=== PATIENT | female | born 1990 | race American Indian/Alaskan Native ===

== ENCOUNTER 2018-06-22 06:57 | Emergency (ER) | payer OTHER ==
[2018-06-22 07:04] VITALS: BP 130/64
[2018-06-22 08:34] LABS: Bilirubin,Urine NEG (Negative); Blood,Urine MOD (Negative); Color,Urine Yellow (Yellow); Protein,Urine <15 mg/dL mg/dL (Negative); Urobilinogen,Urine < 2.0 mg/dL (<2.0); WBC,Urine < 1.0 /HPF (0.0-6.0)
[2018-06-22 08:39] LABS: HCG Qualitative,Urine Negative (Negative)
--- NOTE | 2018-06-22 09:16 | Emergency Department Report ---
ED General Adult HPI - General Chief complaint: Back Pain/Injury Stated complaint: BACK/KNEE/VAGINAL PAIN Time Seen by Provider: 06/22/18 09:00 Source: patient Mode of arrival: Ambulatory Limitations: No Limitations - History of Present Illness Initial comments: Patient is a 27-year-old [place]ian female who is here secondary to some body aches. Patient states over the last several days she developed some pain in the left scapular region in the left knee. Patient states that she is on her feet rectally 10 hours a day at work she also does a lot of heavy lifting with her job at the [employer]. Patient states has been no direct trauma but feels as though she may have injured herself at work. Patient also with a last several days developed some pelvic discomfort. Patient states there is been no dysuria or vaginal discharge. Patient is currently on her menses. Patient denies any fevers chills nausea vomiting at this time. Severity scale (0 -10): 5 Quality: aching Consistency: intermittent Worsens with: movement - Related Data Previous Rx's Medication Instructions Recorded Last Taken Type Ibuprofen [Ibu] 800 mg PO Q8H PRN #20 tablet 06/22/18 Unknown Rx methOCARBAMOL [Robaxin TAB] 500 mg PO Q6H PRN #14 tablet 06/22/18 Unknown Rx traMADol [Ultram] 50 mg PO Q6HR PRN #12 tablet 06/22/18 Unknown Rx Allergies Allergy/AdvReac Type Severity Reaction Status Date / Time No Known Allergies Allergy Unverified 06/22/18 06:59 ED Review of Systems ROS: Stated complaint: BACK/KNEE/VAGINAL PAIN Other details as noted in HPI Comment: All other systems reviewed and negative ED Past Medical Hx - Past Medical History Previous Medical History?: Yes Hx Asthma: Yes - Surgical History Past Surgical History?: No - Social History Smoking Status: Current Every Day Smoker - Medications Home Medications: Home Medications Medication Instructions Recorded Confirmed Last Taken Type Ibuprofen [Ibu] 800 mg PO Q8H PRN #20 tablet 06/22/18 Unknown Rx methOCARBAMOL [Robaxin TAB] 500 mg PO Q6H PRN #14 tablet 06/22/18 Unknown Rx traMADol [Ultram] 50 mg PO Q6HR PRN #12 tablet 06/22/18 Unknown Rx ED Physical Exam - General Limitations: No Limitations General appearance: alert, in no apparent distress, other (morbidly obese) - Head Head exam: Present: atraumatic, normocephalic - Eye Eye exam: Present: normal appearance, PERRL, EOMI - ENT ENT exam: Present: mucous membranes moist - Neck Neck exam: Present: normal inspection - Respiratory Respiratory exam: Present: normal lung sounds bilaterally. Absent: respiratory distress, wheezes, rales, rhonchi - Cardiovascular Cardiovascular Exam: Present: regular rate, normal rhythm, normal heart sounds. Absent: systolic murmur, diastolic murmur, rubs, gallop - GI/Abdominal GI/Abdominal exam: Present: soft, normal bowel sounds. Absent: distended, tenderness, guarding, rebound, rigid - Extremities Exam Extremities exam: Present: normal inspection - Back Exam Back exam: Present: normal inspection, tenderness (at left scapula and trapezius) - Neurological Exam Neurological exam: Present: alert, oriented X3 - Psychiatric Psychiatric exam: Present: normal affect, normal mood - Skin Skin exam: Present: warm, dry, intact, normal color. Absent: rash ED Course Vital Signs 06/22/18 06:59 Temperature 98.7 F Pulse Rate 85 Respiratory 18 Rate Blood Pressure 130/64 O2 Sat by Pulse 98 Oximetry ED Medical Decision Making - Medical Decision Making Patient is a 27-year-old female who is presenting with body aches. His has pain in the left knee as well as her back. Patient likely with some muscular skeletal pain secondary to heavy lifting. Patient's left knee pain likely from overuse with standing all day and being morbidly obese. Patient was given meds for symptomatic relief. Patient's also with some mild dysmenorrhea. Patient discharged home. Critical care attestation.: If time is entered above; I have spent that time in minutes in the direct care of this critically ill patient, excluding procedure time. ED Disposition Clinical Impression: Dysmenorrhea, Musculoskeletal back pain Disposition: - TO HOME OR SELFCARE Is pt being admited?: No Does the pt Need Aspirin: No Condition: Stable Instructions: Musculoskeletal Pain (ED) Referrals: NEENA BRANCH MD [Primary Care Provider] - 3-5 Days Forms: Work/School Release Form(ED) Time of Disposition: 09:19
== END 2018-06-22 09:37 | disposition home or self-care (01) ==
LOC: ED 06:57
DX: M25.562 Pain in left knee (principal); M54.9 Dorsalgia, unspecified; N94.6 Dysmenorrhea, unspecified; F17.200 Nicotine dependence, unspecified, uncomplicated; J45.909 Unspecified asthma, uncomplicated
CPT/HCPCS: 81001; 81025

== ENCOUNTER 2018-06-29 06:50 | Emergency (ER) | payer SELFPAY ==
[2018-06-29 06:59] VITALS: BP 153/85
[2018-06-29 07:39] LABS: Bilirubin,Urine NEG (Negative); Blood,Urine MOD (Negative); Color,Urine Yellow (Yellow); Mucus,Urine 2+ /HPF; Urobilinogen,Urine < 2.0 mg/dL (<2.0)
[2018-06-29] MEDS ORDERED: TORADOL IM ONE (07:42)
[2018-06-29 07:44] LABS: HCG Qualitative,Urine Negative (Negative)
--- NOTE | 2018-06-29 07:46 | Emergency Department Report ---
ED Female HPI - General Chief complaint: Urogenital-Female Stated complaint: BACK AND KNEE PAIN, VAGINAL DISCAHRGE Time Seen by Provider: 06/29/18 07:17 Source: patient Mode of arrival: Ambulatory Limitations: No Limitations - History of Present Illness Initial comments: This is a 27-year-old female who presents to ED complaining of dysuria and burni ng with urination times one week. Patient's is a past couple of days symptoms of condom. Worse. Patient states that she only gets burning in when she urinates. She says she has similar symptoms last week when she was here for back and knee pain. Patient states that she has a history of syphilis but no other medical conditions. Patient denies abdominal pain, nausea, vomiting, abnormal bleeding, vaginal discharge, rash or lesions in the vaginal area. MD Complaint: dysuria - Related Data Previous Rx's Medication Instructions Recorded Last Taken Type Ibuprofen [Ibu] 800 mg PO Q8H PRN #20 tablet 06/22/18 Unknown Rx methOCARBAMOL [Robaxin TAB] 500 mg PO Q6H PRN #14 tablet 06/22/18 Unknown Rx traMADol [Ultram] 50 mg PO Q6HR PRN #12 tablet 06/22/18 Unknown Rx Fluconazole [Diflucan TAB] 150 mg PO ONCE #1 tablet 06/29/18 Unknown Rx metroNIDAZOLE [Flagyl] 500 mg PO Q12HR #14 tab 06/29/18 Unknown Rx Allergies Allergy/AdvReac Type Severity Reaction Status Date / Time No Known Allergies Allergy Unverified 06/22/18 06:59 ED Review of Systems ROS: Stated complaint: BACK AND KNEE PAIN, VAGINAL DISCAHRGE Other details as noted in HPI Comment: All other systems reviewed and negative ED Past Medical Hx - Past Medical History Previous Medical History?: Yes Hx Asthma: Yes - Surgical History Past Surgical History?: No - Social History Smoking Status: Current Every Day Smoker Substance Use Type: None - Medications Home Medications: Home Medications Medication Instructions Recorded Confirmed Last Taken Type Ibuprofen [Ibu] 800 mg PO Q8H PRN #20 tablet 06/22/18 Unknown Rx methOCARBAMOL [Robaxin TAB] 500 mg PO Q6H PRN #14 tablet 06/22/18 Unknown Rx traMADol [Ultram] 50 mg PO Q6HR PRN #12 tablet 06/22/18 Unknown Rx Fluconazole [Diflucan TAB] 150 mg PO ONCE #1 tablet 06/29/18 Unknown Rx metroNIDAZOLE [Flagyl] 500 mg PO Q12HR #14 tab 06/29/18 Unknown Rx ED Physical Exam - General Limitations: No Limitations General appearance: alert, in no apparent distress - Head Head exam: Present: atraumatic, normocephalic - Eye Eye exam: Present: normal appearance - ENT ENT exam: Present: mucous membranes moist - Neck Neck exam: Present: normal inspection - Respiratory Respiratory exam: Present: normal lung sounds bilaterally. Absent: respiratory distress - Cardiovascular Cardiovascular Exam: Present: regular rate, normal rhythm. Absent: systolic murmur, diastolic murmur, rubs, gallop - GI/Abdominal GI/Abdominal exam: Present: soft, normal bowel sounds - Extremities Exam Extremities exam: Present: normal inspection - Back Exam Back exam: Present: normal inspection - Neurological Exam Neurological exam: Present: alert, oriented X3 - Psychiatric Psychiatric exam: Present: normal affect, normal mood - Skin Skin exam: Present: warm, dry, intact, normal color. Absent: rash ED Course Vital Signs 06/29/18 06:53 Temperature 98.6 F Pulse Rate 86 Respiratory 18 Rate Blood Pressure 153/85 O2 Sat by Pulse 97 Oximetry ED Medical Decision Making - Medical Decision Making 27-year-old female presents with dysuria. Urinalysis urine is negative. Discussed findings with patient. Discussed with patient to continue taking medication as prescribed Vital signs are normal patient is in no acute distress. Discussed follow-up with primary care physician. Patient understands instructions given. Critical care attestation.: If time is entered above; I have spent that time in minutes in the direct care of this critically ill patient, excluding procedure time. ED Disposition Clinical Impression: Musculoskeletal back pain, Dysuria Disposition: DC-01 TO HOME OR SELFCARE Is pt being admited?: No Does the pt Need Aspirin: No Condition: Stable Instructions: Vaginitis (ED), Trigger Point Pain (ED), Dysuria (ED), Heat Pack Application (ED) Additional Instructions: Make sure to follow up with the primary care physician as discussed. Take all your medications as you've been prescribed. If you have any worsening symptoms or develop new symptoms please return to ED immediately. Prescriptions: Fluconazole [Diflucan TAB] 150 mg PO ONCE #1 tablet metroNIDAZOLE [Flagyl] 500 mg PO Q12HR #14 tab Referrals: [facility] [Other] - 3-5 Days Forms: Work/School Release Form(ED) Time of Disposition: 08:25
== END 2018-06-29 08:40 | disposition home or self-care (01) ==
LOC: ED 06:50
DX: R30.0 Dysuria (principal); M54.89 Other dorsalgia; J45.909 Unspecified asthma, uncomplicated; F17.200 Nicotine dependence, unspecified, uncomplicated
CPT/HCPCS: 81001; 81025; 96372; 99283; J1885

== ENCOUNTER 2018-07-21 14:02 | Emergency (ER) | payer SELFPAY ==
--- NOTE | 2018-07-21 14:11 | Emergency Department Report ---
Blank Doc - Documentation Documentation: 27 y o female with hx of asthma presents with URI sx x 2 days LMP: currently on cycle, sign consent cxr ACC eval
--- NOTE | 2018-07-21 14:50 | XRay Report ---
ROUTINE CHEST, TWO VIEWS: HISTORY: Asthma. The trachea, heart, mediastinal contour, lung cifuentes and bony thorax are unremarkable. IMPRESSION: Unremarkable chest x-ray.
[2018-07-21] MEDS ORDERED: SOLU-Medrol IM ONE (17:32)
--- NOTE | 2018-07-21 17:36 | Emergency Department Report ---
ED General Adult HPI - General Chief complaint: Adult Asthma Stated complaint: COLD/SOB Time Seen by Provider: 07/21/18 14:09 Source: patient Mode of arrival: Ambulatory Limitations: No Limitations - History of Present Illness Initial comments: The patient presents to the emergency department with the chief complaint of shortness of breath due to her asthma. Patient states she has no albuterol or steroids at home. Patient denies chest pain, or abdominal pain -: Gradual Radiation: non-radiation Severity scale (0 -10): 0 Consistency: constant Improves with: none Worsens with: none Associated Symptoms: denies other symptoms Treatments Prior to Arrival: none - Related Data Previous Rx's Medication Instructions Recorded Last Taken Type Ibuprofen [Ibu] 800 mg PO Q8H PRN #20 tablet 06/22/18 Unknown Rx methOCARBAMOL [Robaxin TAB] 500 mg PO Q6H PRN #14 tablet 06/22/18 Unknown Rx traMADol [Ultram] 50 mg PO Q6HR PRN #12 tablet 06/22/18 Unknown Rx Fluconazole [Diflucan TAB] 150 mg PO ONCE #1 tablet 06/29/18 Unknown Rx metroNIDAZOLE [Flagyl] 500 mg PO Q12HR #14 tab 06/29/18 Unknown Rx ALBUTEROL Inhaler (OR & NICU) 2 puff IH Q4HR PRN #1 inhalation 07/21/18 Unknown Rx [ProAir HFA Inhaler] predniSONE [Deltasone] 20 mg PO DAILY #15 tablet 07/21/18 Unknown Rx Allergies Allergy/AdvReac Type Severity Reaction Status Date / Time No Known Allergies Allergy Verified 07/21/18 14:04 ED Review of Systems ROS: Stated complaint: COLD/SOB Other details as noted in HPI Comment: All other systems reviewed and negative Constitutional: denies: chills, fever Eyes: denies: eye pain, eye discharge, vision change ENT: denies: ear pain, throat pain Respiratory: shortness of breath, wheezing. denies: cough Cardiovascular: denies: chest pain, palpitations Endocrine: no symptoms reported Gastrointestinal: denies: abdominal pain, nausea, diarrhea Genitourinary: denies: urgency, dysuria, discharge Musculoskeletal: denies: back pain, joint swelling, arthralgia Skin: denies: rash, lesions Neurological: denies: headache, weakness, paresthesias Psychiatric: denies: anxiety, depression Hematological/Lymphatic: denies: easy bleeding, easy bruising ED Past Medical Hx - Past Medical History Previous Medical History?: Yes Hx Asthma: Yes - Surgical History Past Surgical History?: No - Social History Smoking Status: Current Every Day Smoker - Medications Home Medications: Home Medications Medication Instructions Recorded Confirmed Last Taken Type Ibuprofen [Ibu] 800 mg PO Q8H PRN #20 tablet 06/22/18 Unknown Rx methOCARBAMOL [Robaxin TAB] 500 mg PO Q6H PRN #14 tablet 06/22/18 Unknown Rx traMADol [Ultram] 50 mg PO Q6HR PRN #12 tablet 06/22/18 Unknown Rx Fluconazole [Diflucan TAB] 150 mg PO ONCE #1 tablet 06/29/18 Unknown Rx metroNIDAZOLE [Flagyl] 500 mg PO Q12HR #14 tab 06/29/18 Unknown Rx ALBUTEROL Inhaler (OR & NICU) 2 puff IH Q4HR PRN #1 inhalation 07/21/18 Unknown Rx [ProAir HFA Inhaler] predniSONE [Deltasone] 20 mg PO DAILY #15 tablet 07/21/18 Unknown Rx ED Physical Exam - General Limitations: No Limitations General appearance: alert, in no apparent distress - Head Head exam: Present: atraumatic, normocephalic - Eye Eye exam: Present: normal appearance, PERRL, EOMI - ENT ENT exam: Present: mucous membranes moist - Neck Neck exam: Present: normal inspection - Respiratory Respiratory exam: Present: normal lung sounds bilaterally, wheezes (mild expiratory wheezing ). Absent: respiratory distress - Cardiovascular Cardiovascular Exam: Present: regular rate, normal rhythm. Absent: systolic murmur, diastolic murmur, rubs, gallop - GI/Abdominal GI/Abdominal exam: Present: soft, normal bowel sounds. Absent: distended, tenderness - Extremities Exam Extremities exam: Present: normal inspection - Back Exam Back exam: Present: normal inspection - Neurological Exam Neurological exam: Present: alert, oriented X3, CN II-XII intact. Absent: motor sensory deficit - Psychiatric Psychiatric exam: Present: normal affect, normal mood - Skin Skin exam: Present: warm, dry, intact, normal color. Absent: rash ED Course Vital Signs 07/21/18 14:09 Temperature 98.7 F Pulse Rate 84 Respiratory 20 Rate Blood Pressure 151/99 O2 Sat by Pulse 100 Oximetry ED Medical Decision Making - Radiology Data Radiology results: report reviewed - Medical Decision Making [facility] at [facility] will order At 1838 the patient asked to be discharged because she was tired of waiting on her breathing treatment Critical care attestation.: If time is entered above; I have spent that time in minutes in the direct care of this critically ill patient, excluding procedure time. ED Disposition Clinical Impression: Asthma, Wheezing Disposition: DC- TO HOME OR SELFCARE Is pt being admited?: No Does the pt Need Aspirin: No Condition: Stable Instructions: Asthma (ED) Additional Instructions: return if worse Referrals: NEENA BRANCH MD [Primary Care Provider] - 3-5 Days [facility] [Provider Group] - 3-5 Days [facility] [Provider Group] - 3-5 Days Time of Disposition: 18:43
[2018-07-21 19:10] VITALS: BP 138/80
[2018-07-21] MEDS ORDERED: DUONEB *Not for PRN Use IH SCH (20:00)
== END 2018-07-21 19:12 | disposition home or self-care (01) ==
LOC: ED 14:02
DX: J45.909 Unspecified asthma, uncomplicated (principal); F17.200 Nicotine dependence, unspecified, uncomplicated
CPT/HCPCS: 71046; 96372; 99283; J2930

== ENCOUNTER 2018-11-04 07:18 | Emergency (ER) | payer BC ==
[2018-11-04] MEDS ORDERED: ALBUTEROL 2.5 MG/3 ML NEBU IH ONE (07:37)
[2018-11-04] MEDS ORDERED: methylPREDNISolone Sod Succinate 125 MG/2 ML INJ IM ONE (07:37)
--- NOTE | 2018-11-04 07:37 | Emergency Department Report ---
Minor Respiratory - HPI Chief Complaint: Dyspnea/Respdistress Stated Complaint: SOB/COUGH Time Seen by Provider: 11/04/18 07:33 Duration: 2 Days Pain Location: Chest Severity: mild Minor Respiratory: Yes Able to Tolerate Fluids, Yes Cough, Yes Shortness of Breath (WITH WHEEZING), No Rhinorrhea, No Ear Pain, No Sick Contacts, No Hemoptysis, No Chest Pain, No Fever Other History: 28 YO FEMALE WITH AE OF ASTHMA. LOW GRADE FEVER ON ADMIT. COUGH. NON TOXIC. ED Review of Systems ROS: Stated complaint: SOB/COUGH Other details as noted in HPI Comment: All other systems reviewed and negative ED Past Medical Hx - Past Medical History Hx Asthma: Yes - Family History Family history: no significant - Social History Smoking Status: Current Every Day Smoker - Medications Home Medications: Home Medications Medication Instructions Recorded Confirmed Last Taken Type ALBUTEROL NEB's [Proventil 0.083% 2.5 mg IH TID PRN #1 box 11/04/18 Unknown Rx NEBS] Albuterol Sulfate [Proair 90 mcg IH QID PRN #1 aer.pow.ba 11/04/18 Unknown Rx Respiclick] Azithromycin [Zithromax Z-AMY] 250 mg PO DAILY #6 tablet 11/04/18 Unknown Rx Cetirizine HCl [ZyrTEC] 10 mg PO DAILY #30 capsule 11/04/18 Unknown Rx Fluticasone [Flonase] 1 spray NS QDAY #1 bottle 11/04/18 Unknown Rx Ibuprofen [Motrin] 800 mg PO Q8HR PRN #30 tablet 11/04/18 Unknown Rx predniSONE [Deltasone] 20 mg PO DAILY #5 tablet 11/04/18 Unknown Rx Minor Respiratory Exam - Exam General: Vital signs noted. No distress. Alert and acting appropriately. HEENT: Yes Pharyngeal Erythema, Yes Moist Mucous Membranes, No Pharyngeal Exudates, No Rhinorrhea, No Conjuctival Injection, No Frontal Tenderness, No Maxillary Tenderness Ear: Neither TM Bulge, Neither TM Erythema, Neither EAC Pain, Neither EAC Discharge Neck: Yes Supple, No Adenopathy Lungs: Yes Good Air Exchange, Yes Wheezes, No Ronchi, No Stridor Heart: Yes Regular, No Murmur Abdomen: Yes Normal Bowel Sounds, No Tenderness, No Peritoneal Signs Skin: No Rash Neurologic: Alert and oriented, no deficits. Musculoskeletal: Unremarkable. ED Medical Decision Making - Medical Decision Making NEB IN ER WITH DC WHEEZING VSS NON TOXIC AMBULATORY NON ILL APPEARING DC HOME WITH RX AND PCP FOLLOW UP Vital Signs 11/04/18 07:52 Temperature 100.0 F H Pulse Rate 94 H Respiratory 22 Rate Blood Pressure 164/90 O2 Sat by Pulse 93 Oximetry - Differential Diagnosis asthma ae Critical care attestation.: If time is entered above; I have spent that time in minutes in the direct care of this critically ill patient, excluding procedure time. ED Disposition Clinical Impression: Asthma with acute exacerbation Disposition: DC-01 TO HOME OR SELFCARE Is pt being admited?: No Does the pt Need Aspirin: No Condition: Stable Instructions: Asthma (ED) Additional Instructions: ACTIVITY TOLERATED DIET TOLERATED FOLLOW UP WITH PCP REFERRAL BELOW MEDS ORDERED TODAY Prescriptions: predniSONE [Deltasone] 20 mg PO DAILY #5 tablet Fluticasone [Flonase] 1 spray NS QDAY #1 bottle Ibuprofen [Motrin] 800 mg PO Q8HR PRN #30 tablet PRN Reason: Pain, Moderate (4-6) Albuterol Sulfate [Proair Respiclick] 90 mcg IH QID PRN #1 aer.pow.ba PRN Reason: Wheezing ALBUTEROL NEB's [Proventil 0.083% NEBS] 2.5 mg IH TID PRN #1 box PRN Reason: Wheezing Azithromycin [Zithromax Z-AMY] 250 mg PO DAILY #6 tablet Cetirizine HCl [ZyrTEC] 10 mg PO DAILY #30 capsule Referrals: PERLITA MARTIN MD [Staff Physician] - 3-5 Days Time of Disposition: 08:16
[2018-11-04 09:21] VITALS: BP 145/79
== END 2018-11-04 09:23 | disposition home or self-care (01) ==
LOC: ED 07:18
DX: J45.901 Unspecified asthma with (acute) exacerbation (principal); F17.200 Nicotine dependence, unspecified, uncomplicated; Z79.899 Other long term (current) drug therapy
CPT/HCPCS: 94640; 96372; 99282; J2930; 94644

== ENCOUNTER 2019-01-15 02:43 | Emergency (ER) | payer BC ==
[2019-01-15 02:54] VITALS: BP 128/76
--- NOTE | 2019-01-15 04:00 | Emergency Department Report ---
Minor Respiratory - HPI Chief Complaint: Upper Respiratory Infection Stated Complaint: COUGH, MUCUS, SOB Time Seen by Provider: 01/15/19 03:52 Duration: 3 Days Pain Location: Nose Severity: mild Minor Respiratory: Yes Able to Tolerate Fluids, Yes Cough, No Rhinorrhea, No Sore Throat, No Ear Pain, No Sick Contacts, No Hemoptysis, No Chest Pain, No Shortness of Breath, No Fever Other History: This is a 28-year-old female with a history of asthma who presents to the complaining of cough congestion for the past 4 days. Patient describes cough and has intermittent productive with thick green and yellow mucus. Patient denies any fever, nausea vomiting chest pain or any other symptoms. She states she does take her asthma medication regularly and has no shortness of breath chest pain ED Review of Systems ROS: Stated complaint: COUGH, MUCUS, SOB Other details as noted in HPI Comment: All other systems reviewed and negative ED Past Medical Hx - Past Medical History Previous Medical History?: Yes Hx Asthma: Yes - Surgical History Past Surgical History?: No - Social History Smoking Status: Current Every Day Smoker Substance Use Type: None - Medications Home Medications: Home Medications Medication Instructions Recorded Confirmed Last Taken Type ALBUTEROL NEB's [Proventil 0.083% 2.5 mg IH TID PRN #1 box 11/04/18 Unknown Rx NEBS] Albuterol Sulfate [Proair 90 mcg IH QID PRN #1 aer.pow.ba 11/04/18 Unknown Rx Respiclick] Cetirizine HCl [ZyrTEC] 10 mg PO DAILY #30 capsule 11/04/18 Unknown Rx Ibuprofen [Motrin] 800 mg PO Q8HR PRN #30 tablet 11/04/18 Unknown Rx predniSONE [Deltasone] 20 mg PO DAILY #5 tablet 11/04/18 Unknown Rx Acetamin/Codeine 120-12Mg/5 ml 5 ml PO TID PRN #80 ml 01/15/19 Unknown Rx [Tylenol/Codeine] Azithromycin [Zithromax Z-AMY] 250 mg PO DAILY #6 tablet 01/15/19 Unknown Rx Fluticasone [Flonase] 1 spray NS QDAY #1 bottle 01/15/19 Unknown Rx Minor Respiratory Exam - Exam General: Vital signs noted. No distress. Alert and acting appropriately. HEENT: Yes Moist Mucous Membranes, No Pharyngeal Erythema, No Pharyngeal Exudates, No Rhinorrhea, No Conjuctival Injection, No Frontal Tenderness, No Maxillary Tenderness Ear: Neither TM Bulge, Neither TM Erythema, Neither EAC Pain, Neither EAC Discharge Neck: Yes Supple, No Adenopathy Lungs: Yes Good Air Exchange, No Wheezes, No Ronchi, No Stridor, No Cough, No Labored Respirations, No Retractions, No Use of Accessory Muscles, No Other Abno rmal Lung Sounds Heart: Yes Regular, No Murmur Abdomen: Yes Normal Bowel Sounds, No Tenderness, No Peritoneal Signs Skin: No Rash, No Edema Neurologic: Alert and oriented, no deficits. Musculoskeletal: Unremarkable. ED Course Vital Signs 01/15/19 02:53 Temperature 98.8 F Pulse Rate 91 H Respiratory 20 Rate Blood Pressure 128/76 O2 Sat by Pulse 92 Oximetry ED Medical Decision Making - Medical Decision Making 28 year-old female presents with upper respiratory symptoms. There was no fever during the ED stay. Discussed with mother symptomatic relief with [id number] medications. Patient verbally states she understands and will comply the following instructions and follow-up Vital signs stable. Pulse ox increased to about 98% on room air prior to discharge Patient is in no acute distress nor restricted to distress. Discussed with the patient follow-up with primary care physician within 3-4 days. Discussed the patient is symptoms worsen she may return to the ED. Critical care attestation.: If time is entered above; I have spent that time in minutes in the direct care of this critically ill patient, excluding procedure time. ED Disposition Clinical Impression: Upper respiratory infection Disposition: DC-01 TO HOME OR SELFCARE Is pt being admited?: No Does the pt Need Aspirin: No Condition: Stable Instructions: Asthma (ED), Upper Respiratory Infection (ED) Additional Instructions: Make sure to follow up with the primary care physician as discussed. Take all your medications as you've been prescribed. If you have any worsening symptoms or develop new symptoms please return to ED immediately. Prescriptions: Fluticasone [Flonase] 1 spray NS QDAY #1 bottle Acetamin/Codeine 120-12Mg/5 ml [Tylenol/Codeine] 5 ml PO TID PRN #80 ml PRN Reason: Pain Azithromycin [Zithromax Z-AMY] 250 mg PO DAILY #6 tablet Referrals: PRIMARY CARE, [Primary Care Provider] - 3-[address] [facility] [Outside] - 3-5 Days [facility] [Outside] - 3-5 Days Forms: Accompanied Note, Work/School Release Form(ED) Time of Disposition: 04:11
== END 2019-01-15 04:45 | disposition home or self-care (01) ==
LOC: ED 02:43
DX: J06.9 Acute upper respiratory infection, unspecified (principal); J45.909 Unspecified asthma, uncomplicated; F17.200 Nicotine dependence, unspecified, uncomplicated
CPT/HCPCS: 99281

== ENCOUNTER 2019-01-21 21:20 | Emergency (ER) | payer BC, OTHER ==
--- NOTE | 2019-01-22 01:37 | XRay Report ---
LEFT KNEE 3 VIEWS INDICATION / CLINICAL INFORMATION: left knee pain. COMPARISON: None available. FINDINGS: BONES and JOINT(S): No acute fracture or subluxation. No significant arthritis. SOFT TISSUES: No significant abnormality. ADDITIONAL FINDINGS: None. IMPRESSION: No significant abnormality of the left knee. Signer Name: Jamie Waldron MD Signed: 01/22/2019 1:33 AM Workstation Name: [email or web address]
[2019-01-22] MEDS ORDERED: KETOROLAC 60 MG/2 ML INJ IM ONE (01:43)
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
[2019-01-22 02:59] VITALS: BP 141/81
== END 2019-01-22 02:59 | disposition home or self-care (01) ==
LOC: ED 21:20
DX: M79.602 Pain in left arm (principal); M25.562 Pain in left knee; E66.01 Morbid (severe) obesity due to excess calories; J45.909 Unspecified asthma, uncomplicated; F17.200 Nicotine dependence, unspecified, uncomplicated; Z79.1 Long term (current) use of non-steroidal anti-inflammatories (NSAID); Z79.899 Other long term (current) drug therapy; V49.49XA Driver injured in collision with other motor vehicles in traffic accident, initial encounter; Y93.89 Activity, other specified; Y92.89 Other specified places as the place of occurrence of the external cause; Y99.8 Other external cause status
CPT/HCPCS: 73562; 96372; 99284; J1885

== ENCOUNTER 2019-06-24 21:45 | Emergency (ER) | payer BC ==
[2019-06-25] MEDS ORDERED: hydrOXYzine HCL 25 MG TAB PO ONE (00:58)
--- NOTE | 2019-06-25 01:48 | Emergency Department Report ---
ED General Adult HPI - General Chief complaint: Anxiety Stated complaint: ANXIETY PANIC ATTACK Time Seen by Provider: 06/25/19 00:54 Source: patient Mode of arrival: Ambulatory Limitations: No Limitations - History of Present Illness Initial comments: Ms. Ayala is a 28-year-old -[place] female who presents for intermittent anxiety for the past week. She denies specific stressor, there is no SI or HI. There are no other somatic symptoms ,there is no nausea /vomiting. no back pain. no dysuria, urgency or frequency. pt denies CP , no sob, no back pain , LMP 1 week ago . . Onset/Timin -: days(s) Worsens with: none Associated Symptoms: denies: chest pain, cough, diaphoresis, fever/chills, headaches, nausea/vomiting, shortness of breath, syncope, weakness Treatments Prior to Arrival: none - Related Data Previous Rx's Medication Instructions Recorded Last Taken Type ALBUTEROL NEB's [Proventil 0.083% 2.5 mg IH TID PRN #1 box 11/04/18 Unknown Rx NEBS] Albuterol Sulfate [Proair 90 mcg IH QID PRN #1 aer.pow.ba 11/04/18 Unknown Rx Respiclick] Cetirizine HCl [ZyrTEC] 10 mg PO DAILY #30 capsule 11/04/18 Unknown Rx Ibuprofen [Motrin] 800 mg PO Q8HR PRN #30 tablet 11/04/18 Unknown Rx predniSONE [Deltasone] 20 mg PO DAILY #5 tablet 11/04/18 Unknown Rx Acetamin/Codeine 120-12Mg/5 ml 5 ml PO TID PRN #80 ml 01/15/19 Unknown Rx [Tylenol/Codeine] Azithromycin [Zithromax Z-AMY] 250 mg PO DAILY #6 tablet 01/15/19 Unknown Rx Fluticasone [Flonase] 1 spray NS QDAY #1 bottle 01/15/19 Unknown Rx Cyclobenzaprine [Flexeril] 10 mg PO TID PRN #12 tablet 01/22/19 Unknown Rx Ibuprofen [Motrin 800 MG tab] 800 mg PO Q8HR PRN #20 tablet 01/22/19 Unknown Rx hydrOXYzine HCL [Atarax] 25 mg PO Q6HR PRN #4 tablet 06/25/19 Unknown Rx Allergies Allergy/AdvReac Type Severity Reaction Status Date / Time No Known Allergies Allergy Verified 07/21/18 14:04 ED Review of Systems ROS: Stated complaint: ANXIETY PANIC ATTACK Other details as noted in HPI Constitutional: denies: chills, fever Eyes: denies: eye pain, eye discharge, vision change ENT: denies: ear pain, throat pain Respiratory: denies: cough, shortness of breath, stridor, wheezing Cardiovascular: denies: chest pain, palpitations, dyspnea on exertion, edema, syncope, paroxysmal nocturnal dyspnea Endocrine: no symptoms reported Gastrointestinal: denies: abdominal pain, nausea, diarrhea Genitourinary: denies: urgency, dysuria, discharge Musculoskeletal: as per HPI. denies: back pain, joint swelling, arthralgia Skin: as per HPI. denies: rash, lesions, change in color, pruritus Neurological: denies: headache, weakness, paresthesias, vertigo Psychiatric: denies: anxiety, depression Hematological/Lymphatic: denies: easy bleeding, easy bruising ED Past Medical Hx - Past Medical History Hx Asthma: Yes Additional medical history: Morbid Obesity - Surgical History Past Surgical History?: No - Social History Smoking Status: Current Every Day Smoker Substance Use Type: Alcohol - Medications Home Medications: Home Medications Medication Instructions Recorded Confirmed Last Taken Type ALBUTEROL NEB's [Proventil 0.083% 2.5 mg IH TID PRN #1 box 11/04/18 Unknown Rx NEBS] Albuterol Sulfate [Proair 90 mcg IH QID PRN #1 aer.pow.ba 11/04/18 Unknown Rx Respiclick] Cetirizine HCl [ZyrTEC] 10 mg PO DAILY #30 capsule 11/04/18 Unknown Rx Ibuprofen [Motrin] 800 mg PO Q8HR PRN #30 tablet 11/04/18 Unknown Rx predniSONE [Deltasone] 20 mg PO DAILY #5 tablet 11/04/18 Unknown Rx Acetamin/Codeine 120-12Mg/5 ml 5 ml PO TID PRN #80 ml 01/15/19 Unknown Rx [Tylenol/Codeine] Azithromycin [Zithromax Z-AMY] 250 mg PO DAILY #6 tablet 01/15/19 Unknown Rx Fluticasone [Flonase] 1 spray NS QDAY #1 bottle 01/15/19 Unknown Rx Cyclobenzaprine [Flexeril] 10 mg PO TID PRN #12 tablet 01/22/19 Unknown Rx Ibuprofen [Motrin 800 MG tab] 800 mg PO Q8HR PRN #20 tablet 01/22/19 Unknown Rx hydrOXYzine HCL [Atarax] 25 mg PO Q6HR PRN #4 tablet 06/25/19 Unknown Rx ED Physical Exam - General Limitations: No Limitations General appearance: alert, in no apparent distress - Head Head exam: Present: atraumatic, normocephalic - Eye Eye exam: Present: normal appearance, PERRL, EOMI - ENT ENT exam: Present: normal exam, normal orophraynx, mucous membranes moist, TM's normal bilaterally, normal external ear exam - Neck Neck exam: Present: normal inspection. Absent: tenderness, meningismus, full ROM - Respiratory Respiratory exam: Present: normal lung sounds bilaterally. Absent: respiratory distress, wheezes, rales, rhonchi, stridor, chest wall tenderness, accessory muscle use, decreased breath sounds, prolonged expiratory - Cardiovascular Cardiovascular Exam: Present: regular rate, normal rhythm, normal heart sounds. Absent: systolic murmur, diastolic murmur, rubs, gallop - GI/Abdominal GI/Abdominal exam: Present: soft, normal bowel sounds. Absent: distended, tenderness, guarding, bruit, hernia - Rectal Rectal exam: Present: deferred - External exam: Present: normal external exam Speculum exam: Absent: normal speculum exam - Extremities Exam Extremities exam: Present: normal inspection, full ROM, normal capillary refill. Absent: tenderness, pedal edema, joint swelling, calf tenderness - Back Exam Back exam: Present: normal inspection, full ROM. Absent: tenderness - Neurological Exam Neurological exam: Present: alert, oriented X3, CN II-XII intact, normal gait, motor sensory deficit, reflexes normal - Psychiatric Psychiatric exam: Present: anxious - Skin Skin exam: Present: warm, dry, intact, normal color. Absent: rash ED Course Vital Signs 06/24/19 22:05 Temperature 98.0 F Pulse Rate 77 Respiratory 18 Rate Blood Pressure 147/85 O2 Sat by Pulse 96 Oximetry ED Medical Decision Making - Medical Decision Making Patient states symptoms improve will follow-up with [facility] today. Patient will be discharged to home in stable condition at this time there is no SI or HI at this time no anxiety attack at this time. Critical care attestation.: If time is entered above; I have spent that time in minutes in the direct care of this critically ill patient, excluding procedure time. ED Disposition Clinical Impression: Stress Disposition: DC-01 TO HOME OR SELFCARE Is pt being admited?: No Does the pt Need Aspirin: No Condition: Stable Instructions: Stress (ED) Prescriptions: hydrOXYzine HCL [Atarax] 25 mg PO Q6HR PRN #4 tablet PRN Reason: Itching Referrals: JHONATAN SIFUENTES MD [Staff Physician] - 3-5 Days [facility] [Outside] - 3-5 Days Forms: Work/School Release Form(ED) Time of Disposition: 02:12
[2019-06-25 02:37] VITALS: BP 132/70
== END 2019-06-25 02:37 | disposition home or self-care (01) ==
LOC: ED 21:45
DX: F43.9 Reaction to severe stress, unspecified (principal); J45.909 Unspecified asthma, uncomplicated; F17.200 Nicotine dependence, unspecified, uncomplicated; E66.01 Morbid (severe) obesity due to excess calories; Z68.44 Body mass index [BMI] 60.0-69.9, adult
CPT/HCPCS: 99282